=== PATIENT | male | born 1995 | race Caucasian/White ===

== ENCOUNTER 2016-12-02 23:19 | Emergency (ER) | payer SELFPAY ==
[2016-12-02 23:31] VITALS: RESP 16; O2SAT 95
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
[2016-12-03 00:52] LABS: % IMMATURE GRANULYOCYTES 0.3 % (0.0-1.1); ABSOLUTE IMMATURE GRANULOCYTES 0.03 10^3/uL (0.00-0.10); ADD DIFF? NO; ADD MORPH? NO; ADD SCAN? NO; ATYPICAL LYMPHOCYTE FLAG 0 (0-99); FRAGMENT RBC FLAG 0 (0-99); HEMATOCRIT 43.7 % (40.0-51.0); HEMOGLOBIN 15.5 g/dL (13.7-17.5); LEFT SHIFT FLG 0 (0-99); LIPEMIA HEMOLYSIS FLAG 90 (0-99); MEAN CELL HEMOGLOBIN 31.6 pg (27.9-34.1); MEAN CELL HEMOGLOBIN CONCENTR. 35.5 g/dL (32.4-36.7); MEAN PLATELET VOLUME 9.3 fL (8.7-11.7); PLATELET CLUMPS FLAG 0 (0-99); PLATELET COUNT 300 10^3/uL (150-400); RED BLOOD CELL COUNT 4.91 10^6/uL (4.40-6.38); RED CELL DISTRIBUTION WIDTH 12.3 % (11.5-15.2)
[2016-12-03 01:03] LABS: ALANINE AMINOTRANSFERASE 35 IU/L (21-72); ALBUMIN 4.4 g/dL (3.5-5.0); ALKALINE PHOSPHATASE 82 IU/L (38-126); ANION GAP 14 mEq/L (8-16); ASPARTATE AMINOTRANSFERASE 23 IU/L (17-59); BILIRUBIN,TOTAL 0.6 mg/dL (0.1-1.4); CALCIUM 9.4 mg/dL (8.5-10.4); CARBON DIOXIDE 23 mEq/l (22-31); CHLORIDE 104 mEq/L (97-110); CREATININE 0.9 mg/dL (0.7-1.3); ETHANOL SERUM < 10 mg/dL (0-10); GLOMERULAR FILTRATION RATE > 60; GLUCOSE 83 mg/dL (70-100); POTASSIUM 4.1 mEq/L (3.5-5.2); SODIUM 141 mEq/L (134-144); TOTAL PROTEIN 7.6 g/dL (6.3-8.2)
[2016-12-03 02:44] VITALS: BP 111/81; PULSE 91; TEMP 98.8
== END 2016-12-03 02:54 | disposition home or self-care (01) ==
DX: R41.3 Other amnesia (principal); F12.10 Cannabis abuse, uncomplicated; J45.909 Unspecified asthma, uncomplicated
CPT/HCPCS: 80305; G0480

== ENCOUNTER 2017-07-13 13:41 | Emergency (ER) | payer OTHER ==
[2017-07-13] MEDS ORDERED: KETOROLAC 30 MG/1 ML SDV ONE (16:45)
--- NOTE | 2017-07-13 16:49 | EDPHY ---
H & P Time Seen by Provider: 07/13/17 16:30 HPI/ROS: CHIEF COMPLAINT: Headache, serotonin syndrome HISTORY OF PRESENT ILLNESS: The patient is a 21-year-old male who is concerned that he has serotonin syndrome. Patient states that he takes Wellbutrin. However, he takes this medication intermittently. He starts and stops the medication frequently. He was not taking the medication early this week. However, he was taking cough medicine because of the cold. He then restarted his Wellbutrin on Sunday. He subsequently felt jittery. He developed a headache. He has a history of migraine headaches and this feels similar but he was concerned this related to taking the cough medicine and his Wellbutrin. He was seen at work. He was told to come to the emergency department for further evaluation. Patient denies any ataxia. No complaints with coordination. No change of mental status. No focal neurologic deficits. No recent trauma or fall. No neck pain. REVIEW OF SYSTEMS: My complete review of systems is negative except as mentioned in the HPI. Past Medical/Surgical History: Includes migraines, asthma, depression, anxiety Smoking Status: Never smoked Physical Exam: Vitals noted GENERAL: Well-appearing, in no acute distress, alert. HEENT: Eyes normal to inspection, normal pharynx, no signs of dehydration. NECK: [No thyromegaly, no lymphadenopathy, supple. RESPIRATORY: Clear to auscultation bilaterally, no rales, rhonchi or wheezing. CVS: Mild tachycardia with regular rhythm, no rubs, murmurs, or gallops. ABDOMEN: Soft, nontender, nondistended, no organomegaly. BACK: Normal to inspection, no CVA tenderness. SKIN: Normal color, no rash, warm, dry. No pallor. EXTREMITIES: No pedal edema, no calf tenderness, no Homans sign or cords, no joint swelling. NEURO/PSYCH: Higher functions: Alert and Oriented x3. Normal speech and cognition. Normal mood and affect. Cranial nerves: Normal as tested. Cerebellar: Normal as tested. Good finger to nose, good [id number], normal gait. Peripheral exam: Normal motor exam. Normal sensation. Normal reflexes. Constitutional: Initial Vital Signs Temperature (C) 36.9 C 07/13/17 14:12 Heart Rate 108 H 07/13/17 14:12 Respiratory Rate 16 07/13/17 14:12 Blood Pressure 149/88 H 07/13/17 14:12 O2 Sat (%) 96 07/13/17 14:12 O2 Delivery Mode Room Air Allergies/Adverse Reactions: No Known Allergies Allergy (Unverified 07/13/17 14:11) Home Medications: Medication Instructions Recorded LORazepam [Ativan (*)] 1 mg PO TID #9 tab 07/13/17 Ondansetron Odt [Zofran Odt 4 mg 4 mg PO Q4PRN PRN #7 tab 07/13/17 (*)] Wellbutrin 100mg (*) 07/13/17 Medical Decision Making ED Course/Re-evaluation: In the emergency department I discussed possible etiologies with the patient. I answered all his questions. IV was placed laboratory studies and head CT were ordered. Patient was given Toradol 30 mg IV and Ativan 0.5 mg IV for his headache and anxiety. Patient's laboratory studies were normal. On recheck the patient was doing well. His headache has resolved. He had no focal deficits. I discussed possible etiologies with the patient. I answered all his questions. He was given warnings prior to leaving. He requested a few tablets for anxiety as well as nausea. Differential Diagnosis: My differential includes but is not limited to subarachnoid hemorrhage, subdural hematoma, epidural hematoma, migraine, anxiety, electrolyte abnormality , sugar abnormality, serotonin syndrome Patient has no mental status changes. There is no significant autonomic hyperactivity. I find no neuromuscular abnormalities. - Data Points Laboratory Results: Laboratory Results 07/13/17 16:51 07/13/17 16:51 07/13/17 07/13/17 16:51 16:51 WBC 9.28 10^3/uL 10^3/uL (3.80-9.50) RBC 5.21 10^6/uL 10^6/uL (4.40-6.38) Hgb 15.8 g/dL g/dL (13.7-17.5) Hct 46.0 % % (40.0-51.0) MCV 88.3 fL fL (81.5-99.8) MCH 30.3 pg pg (27.9-34.1) MCHC 34.3 g/dL g/dL (32.4-36.7) RDW 13.2 % % (11.5-15.2) Plt Count 288 10^3/uL 10^3/uL (150-400) MPV 9.3 fL fL (8.7-11.7) Neut % (Auto) 69.9 % % (39.3-74.2) Lymph % (Auto) 18.0 % % (15.0-45.0) [place] % (Auto) 7.9 % % (4.5-13.0) Eos % (Auto) 3.6 % % (0.6-7.6) Baso % (Auto) 0.4 % % (0.3-1.7) Nucleat RBC Rel Count 0.0 % % (0.0-0.2) Absolute Neuts (auto) 6.49 10^3/uL 10^3/uL (1.70-6.50) Absolute Lymphs (auto) 1.67 10^3/uL 10^3/uL (1.00-3.00) Absolute Monos (auto) 0.73 10^3/uL 10^3/uL (0.30-0.80) Absolute Eos (auto) 0.33 10^3/uL 10^3/uL (0.03-0.40) Absolute Basos (auto) 0.04 10^3/uL 10^3/uL (0.02-0.10) Absolute Nucleated RBC 0.00 10^3/uL 10^3/uL (0-0.01) Immature Gran % 0.2 % % (0.0-1.1) Immature Gran # 0.02 10^3/uL 10^3/uL (0.00-0.10) Sodium 139 mEq/L mEq/L (135-145) Potassium 4.0 mEq/L mEq/L (3.3-5.0) Chloride 101 mEq/L mEq/L (97-110) Carbon Dioxide 19 mEq/l L mEq/l (22-31) Anion Gap 19 mEq/L H mEq/L (8-16) BUN 9 mg/dL mg/dL (7-23) Creatinine 0.8 mg/dL mg/dL (0.7-1.3) Estimated GFR > 60 Glucose 73 mg/dL mg/dL (70-100) Calcium 9.3 mg/dL mg/dL (8.5-10.4) Medications Given: Discontinued Medications Sodium Chloride (Ns) 1,000 mls @ 3,000 mls/hr IV ONCE ONE Stop: 07/13/17 17:09 Last Admin: 07/13/17 16:51 Dose: 1,000 mls Ketorolac Tromethamine (Toradol) 30 mg IVP EDNOW ONE Stop: 07/13/17 16:51 Last Admin: 07/13/17 16:51 Dose: 30 mg Departure - Departure Disposition: Home, Routine, Self-Care Clinical Impression: Headache Qualifiers: Headache type: unspecified Headache chronicity pattern: acute headache Intractability: not intractable Qualified Code(s): R51 - Headache Condition: Good Instructions: Acute Headache (ED) Additional Instructions: Return with increasing headache, weakness, numbness, a difficulty walking, incoordination, palpitations or any other concerns. Referrals: [facility],. [Clinic] - 5-7 days, call for appt. Prescriptions: LORazepam [Ativan (*)] 1 mg PO TID #9 tab Ondansetron Odt [Zofran Odt 4 mg (*)] 4 mg PO Q4PRN PRN #7 tab PRN Reason: For Nausea & Vomiting
[2017-07-13] MEDS ORDERED: NS 1,000 ML IV ONE (16:50)
[2017-07-13] MEDS ORDERED: KETOROLAC 30 MG/1 ML SDV IVP ONE (16:50)
[2017-07-13 17:13] LABS: PLATELET COUNT 288 10^3/uL (150-400)
[2017-07-13 18:54] VITALS: BP 132/74
== END 2017-07-13 18:54 | disposition home or self-care (01) ==
DX: R51 Headache (principal); J45.909 Unspecified asthma, uncomplicated
CPT/HCPCS: 96374; J1885

== ENCOUNTER 2018-03-28 23:14 | Emergency (ER) | payer OTHER ==
--- NOTE | 2018-03-28 23:25 | EDPHY ---
H & P Stated Complaint: +Flu A on Sunday, given antivirals, feeling worse, nausea Time Seen by Provider: 03/28/18 23:24 HPI/ROS: HPI: This is a 22-year-old male who presents with Chief Complaint: +Flu A on Sunday, given antivirals, feeling worse, nausea Location: chest Quality: Cough, wheezing Duration: 2-3 days Signs and Symptoms: no fever, no nausea, no vomiting, no diarrhea, no urinary symptoms, no chest pain, + shortness of breath, + wheezing, + nonproductive cough, no sore throat, no neck stiffness, no joint pain, no swollen glands, no ear pain, no rash, + fatigue, + body aches Timing: Slowly worsening Severity: Moderate Context: Patient was diagnosed at [facility] on Sunday with influenza a. He reports that he was given Tamiflu included the 5 days of treatment. He reports that over the last 2-3 days he started to developed shortness of breath with exertion and wheezing. He reports that his cough has now become nonproductive in harsh in nature. He reports as a child he has exercise-induced asthma but "grew out of it." Modifying Factors: See above Comment: ROS: A comprehensive 10 system review of systems is otherwise negative aside from elements mentioned in the history of present illness. MEDICAL/SURGICAL/SOCIAL HISTORY: Medical history: Migraines, asthma, depression, anxiety Surgical history: Denies Social history: Never smoked. Family history noncontributory. CONSTITUTIONAL: Well-developed, well-nourished, young adult white male, awake and alert, no obvious distress HEENT: Atraumatic and normocephalic, PERRL, EOMI. Nares patent; no rhinorrhea; no nasal mucosal edema. Tympanic membranes clear. Oropharynx clear, no exudate and moist pink mucosa. Airway patent. No lymphadenopathy. No meningismus. Cardiovascular: Normal S1/S2, tachycardia, regular rhythm, without murmur rub or gallop. PULMONARY/CHEST: Symmetrical and nontender. Clear to auscultation bilaterally. Good air movement. No accessory muscle usage. ABDOMEN: Soft, nondistended, nontender, no rebound, no guarding, no peritoneal signs, no masses or organomegaly. No CVAT. EXTREMITIES: 2/2 pulses, strength 5/5, no deformities, no clubbing, no cyanosis or edema. NEUROLOGICAL: no focal neuro deficits. GCS 15. SKIN: Warm and dry, no erythema. no rash. Good capillary refill. Source: Patient Exam Limitations: No limitations - Personal History Current Tetanus Diphtheria and Acellular Pertussis (TDAP): Yes - Medical/Surgical History Hx Asthma: Yes Hx Chronic Respiratory Disease: No Hx Diabetes: No Hx Cardiac Disease: No Hx Renal Disease: No Hx Cirrhosis: No Hx Alcoholism: No Hx HIV/AIDS: No Hx Splenectomy or Spleen Trauma: No Other PMH: Migraines, asthma, depression, anxiety - Social History Smoking Status: Never smoked Constitutional: Initial Vital Signs Temperature (C) 36.9 C 03/28/18 23:17 Heart Rate 122 H 03/28/18 23:17 Respiratory Rate 20 03/28/18 23:17 Blood Pressure 122/95 H 03/28/18 23:17 O2 Sat (%) 95 03/28/18 23:17 O2 Delivery Mode Room Air Allergies/Adverse Reactions: No Known Allergies Allergy (Unverified 03/28/18 23:16) Home Medications: Medication Instructions Recorded LORazepam [Ativan (*)] 1 mg PO TID #9 tab 07/13/17 Ondansetron Odt [Zofran Odt 4 mg 4 mg PO Q4PRN PRN #7 tab 07/13/17 (*)] Wellbutrin 100mg (*) 07/13/17 Albuterol [Proventil Inhaler HFA 1 - 2 puffs IH Q4H PRN #1 mdi 03/29/18 (*)] predniSONE 40 mg PO DAILY 4 Days tab 03/29/18 Medical Decision Making - Diagnostics Imaging Results: Imaging Impressions Chest X-Ray 03/28/18 23:32 Impression: Perihilar bronchitis/RAD, with no focal infiltrate. ED Course/Re-evaluation: Vital signs reviewed and show tachycardia. No hypoxia respiratory distress Chest x-ray ordered and my read via PAC shows no opacity, no effusion, no widened mediastinum, no pneumothorax. + bronchitic changes noted Given DuoNeb, prednisone 60 mg, Tylenol 1000 mg and ibuprofen 800 mg Reassessed patient who reports improved aeration. Vital signs improved at discharge. Given a prescription for steroids and albuterol inhaler. This patient was seen under the supervision of my secondary supervising physician. I evaluated care for this patient with attending. Discussed this patient with Dr. Edmond. Differential Diagnosis: Adult fever including but not limited to viral syndromes including influenza, urinary tract infection, pneumonia and sepsis. - Data Points Medications Given: Discontinued Medications Acetaminophen (Tylenol) 1,000 mg PO EDNOW ONE Stop: 03/28/18 23:32 Last Admin: 03/28/18 23:33 Dose: 1,000 mg Albuterol/Ipratropium (Duoneb) 3 ml IH EDNOW ONE Stop: 03/28/18 23:32 Last Admin: 03/28/18 23:34 Dose: 3 ml Ibuprofen (Motrin) 800 mg PO EDNOW ONE Stop: 03/28/18 23:32 Last Admin: 03/28/18 23:33 Dose: 800 mg Prednisone (Prednisone) 60 mg PO EDNOW ONE Stop: 03/28/18 23:32 Last Admin: 03/28/18 23:33 Dose: 60 mg Departure - Departure Disposition: Home, Routine, Self-Care Clinical Impression: Influenzal bronchitis Condition: Good Instructions: Influenza (ED), Acute Bronchitis (ED) Additional Instructions: Rest as much as possible until feeling better. Take Tylenol 650 mg every 4 hr and/or ibuprofen 600 mg with food every 8 hr as needed for pain, fever, headache. Use albuterol inhaler every 4-6 hours as needed for shortness of breath, wheezing. Take steroids as directed. Consume a minimum of 8-10 glasses of water or electrolyte fluid replacement drinks that include Gatorade, Powerade, Pedialyte. Referrals: [facility] [Clinic] - As per Instructions Stand Alone Forms: School Excuse Prescriptions: Albuterol [Proventil Inhaler HFA (*)] 1 - 2 puffs IH Q4H PRN #1 mdi PRN Reason: Short Of Breath/Dyspnea predniSONE 40 mg PO DAILY 4 Days tab
[2018-03-28] MEDS ORDERED: ACETAMINOPHEN 500 MG TAB ONE (23:28)
[2018-03-28] MEDS ORDERED: IBUPROFEN 800 MG TAB PO ONE ×2 (23:29→23:31)
[2018-03-28] MEDS ORDERED: IPRATROPIUM/ALBUTEROL 3 ML DEYVIAL ONE (23:29)
[2018-03-28] MEDS ORDERED: predniSONE 20 MG TAB ONE (23:29)
[2018-03-28] MEDS ORDERED: ACETAMINOPHEN 500 MG TAB PO ONE (23:31)
[2018-03-28] MEDS ORDERED: IPRATROPIUM/ALBUTEROL 3 ML DEYVIAL IH ONE (23:31)
[2018-03-28] MEDS ORDERED: predniSONE 20 MG TAB PO ONE (23:31)
[2018-03-29 00:18] VITALS: BP 130/78
== END 2018-03-29 00:40 | disposition home or self-care (01) ==
DX: J11.1 Influenza due to unidentified influenza virus with other respiratory manifestations (principal)
CPT/HCPCS: J7512